=== PATIENT | female | born 1995 | race Caucasian/White ===

== ENCOUNTER → 2018-04-11 | Outpatient (CLI) | payer BC | LOC: COL.RAD 10:14 | DX: E28.2 Polycystic ovarian syndrome (principal); Z97.5 Presence of (intrauterine) contraceptive device ==

== ENCOUNTER → 2018-04-18 | Outpatient (CLI) | payer BC | LOC: MC.RAD 14:07 | DX: N64.52 Nipple discharge (principal) ==

== ENCOUNTER 2018-06-05 23:27 | Emergency (ER) | payer BC ==
[~2018-06-05] VITALS: Ht 162.6 cm; Wt 100.0 kg
[2018-06-05 23:33] VITALS: TEMP 96.8
[2018-06-06] MEDS ORDERED: TOPAMAX50 MG PO (00:59)
[2018-06-06] MEDS ORDERED: GLUCOPHAGE XR500 M1 PO (01:00)
[2018-06-06] MEDS ORDERED: LOPRESSOR 550 MG/TAB PO (01:00)
[2018-06-06] MEDS ORDERED: RITALIN LA40 MG PO (01:01)
[2018-06-06] MEDS ORDERED: ZOLOFT 100MG100 MG PO (01:01)
[2018-06-06 01:07] LABS: ALANINE AMINOTRANSFERASE 31 U/L (9-52); ALBUMIN 4.3 gm/dL (3.5-5.0); ALKALINE PHOSPHATASE 76 U/L (50-136); ANION GAP 10 mmol/L (7-16); AST,SGOT 30 U/L (15-37); BILIRUBIN,TOTAL 0.3 mg/dL (0.0-1.0); BLOOD UREA NITROGEN 13 mg/dL (7-17); CALCIUM 9.7 mg/dL (8.4-10.2); CARBON DIOXIDE 21 mmol/L (22-30); CHLORIDE 110 mmol/L (98-107); CREATININE, serum 0.79 (0.52-1.25); GLUCOSE 102 mg/dL (74-106); LIPASE 96 U/L (23-300); SODIUM 141 mmol/L (137-145); TOTAL PROTEIN 7.8 gm/dL (6.4-8.2)
[2018-06-06 01:08] LABS: C-REACTIVE PROTEIN < 0.5 mg/dL (0.0-0.9)
[2018-06-06 01:10] LABS: BASO # 0.1 (0.0-0.2); BASO % 0.7 % (0.0-2.0); EOS # 1.8 (0.0-0.7); EOS % 12.3 % (0-4.0); GRAN # 7.4 (1.4-6.5); GRAN % 50.1 % (42.2-75.2); HEMATOCRIT 41.7 % (37.0-47.0); HEMOGLOBIN 13.9 g/dl (12.5-16.0); LYMPH # 4.5 (1.2-3.4); LYMPH % 30.3 % (20.0-51.0); MEAN CELL VOLUME 90 fl (80.0-100.0); MEAN CORPUSCULAR HEMOGLOBIN 30 pg (27.0-31.0); MEAN CORPUSCULAR HGB CONC 33 g/dl (33.0-37.0); MEAN PLATELET VOLUME 9.5 fl (7.4-10.4); MONO # 0.8 (0.1-0.6); MONO % 5.6 % (1.7-9.3); PLATELET COUNT 345 K/mm3 (130-400); RED BLOOD COUNT 4.64 M/mm3 (4.10-5.30); REDCELL DISTRIBUTION WIDTH-CV 12.2 % (11.5-14.5)
[2018-06-06 01:44] LABS: COLLECTION METHOD CLEAN CATCH
[2018-06-06 01:56] LABS: MUCOUS Present /lpf; PH 5 (5-8); SQUAMOUS EPITHELIAL 0-2 /hpf; URINE APPEARANCE Clear; URINE BACTERIA None Seen /hpf; URINE BILIRUBIN Negative (NEGATIVE); URINE BLOOD 2+ (NEGATIVE); URINE COLOR Yellow; URINE GLUCOSE Negative (NEGATIVE); URINE KETONE Negative (NEGATIVE); URINE LEUKOCYTE ESTERASE Negative (NEGATIVE); URINE NITRATE Negative (NEGATIVE); URINE PROTEIN(semi-quant) Negative (NEGATIVE); URINE RBC 0-2 /hpf; URINE UROBILINOGEN Negative (NEGATIVE)
[2018-06-06] MEDS ORDERED: ZOFRAN 4MG T4 MG/TAB PO (04:12)
[2018-06-06 04:36] VITALS: BP 118/74; PULSE 66
== END 2018-06-06 04:36 | disposition home or self-care (01) ==
LOC: COL.ER 23:27
PROVIDERS: Physician Assistant
DX: K52.9 Noninfective gastroenteritis and colitis, unspecified (principal); F32.9 Major depressive disorder, single episode, unspecified; F41.9 Anxiety disorder, unspecified; G43.909 Migraine, unspecified, not intractable, without status migrainosus; Z90.89 Acquired absence of other organs; Z79.84 Long term (current) use of oral hypoglycemic drugs
CPT/HCPCS: J2405; J7030